=== PATIENT | male | born 1960 | race Two or more races ===

== ENCOUNTER 2023-09-28 17:06 | Emergency (ER) | payer OTHER ==
[~2023-09-28] VITALS: Ht 172.7 cm; Wt 117.9 kg
[2023-09-28 17:46] VITALS: BP 139/93; PULSE 96; RESP 18; TEMP 98; O2SAT 98
[2023-09-28] MEDS ORDERED: CYCL-837 PO (20:32)
[2023-09-28] MEDS ORDERED: ACE3T PO (20:32)
[2023-09-28] MEDS: KETOROLAC TROMETH 60MG/2ML VIAL IM ONE (20:43)
== END 2023-09-28 21:34 | disposition home or self-care (01) ==
LOC: ER 17:06
DX: S39.012A Strain of muscle, fascia and tendon of lower back, initial encounter (principal); W18.09XA Striking against other object with subsequent fall, initial encounter; Y93.01 Activity, walking, marching and hiking; Y92.89 Other specified places as the place of occurrence of the external cause; Y99.8 Other external cause status
CPT/HCPCS: 72100; 96372; 99283; J1885

== ENCOUNTER 2023-10-19 14:37 | Emergency (ER) | payer OTHER ==
[~2023-10-19] VITALS: Ht 172.7 cm; Wt 116.3 kg
[~2023-10-19 14:37] MED LIST: ACE3T PO; CYCL-837 PO; IBUP1TAB5 PO; PRED20TA2 PO
[2023-10-19 15:01] VITALS: BP 141/96; PULSE 106; RESP 18; O2SAT 99
[2023-10-19] MEDS: KETOROLAC TROMETH 60MG/2ML VIAL IM ONE (20:20)
== END 2023-10-19 20:25 | disposition home or self-care (01) ==
LOC: ER 14:37
DX: M54.41 Lumbago with sciatica, right side (principal); E11.9 Type 2 diabetes mellitus without complications; E78.5 Hyperlipidemia, unspecified; I10 Essential (primary) hypertension; Z88.0 Allergy status to penicillin
CPT/HCPCS: 72100; 72220; 96372; 99284; J1885

== ENCOUNTER → 2024-02-09 | Outpatient (CLI) | payer BC ==
[2024-02-09 15:23] LABS: Amphetamine Screen, Urine Neg (NEGATIVE)
[2024-02-09 15:25] LABS: Barbiturate Scree,Urine Neg (NEGATIVE); Benzodiazephine Screen, Urine Neg (NEGATIVE); Cannabinoid Screen, Urine Neg (NEGATIVE); Cocaine Screen, Urine Neg (NEGATIVE); Opiate Scree,Urine Pos (NEGATIVE); Phencyclidine Screen, Urine Neg (NEGATIVE)
== END | disposition home or self-care (01) ==
LOC: LAB 13:55
PROVIDERS: ATTEND Family Medicine
DX: K59.03 Drug induced constipation (principal); M54.41 Lumbago with sciatica, right side
CPT/HCPCS: 80307

== ENCOUNTER → 2024-04-28 | Outpatient (CLI) | payer BC ==
[2024-04-28 08:28] LABS: Amphetamine Screen, Urine Neg (NEGATIVE); Barbiturate Scree,Urine Neg (NEGATIVE)
[2024-04-28 08:29] LABS: Benzodiazephine Screen, Urine Neg (NEGATIVE); Cannabinoid Screen, Urine Neg (NEGATIVE); Cocaine Screen, Urine Neg (NEGATIVE); Opiate Scree,Urine Pos (NEGATIVE); Phencyclidine Screen, Urine Neg (NEGATIVE)
[2024-04-28 08:31] LABS: Alanine Aminotransferase 29 U/L (7-40); Albumin 4.6 g/dL (3.2-4.8); Alkaline Phosphatase 116 U/L (46-116); Anion Gap 8 (5-15); Aspartate Aminotransferase 23 U/L (13-40); BUN/Creatinine Ratio 13.4 (10.0-20.0); Bilirubin, Total 0.4 mg/dL (0.2-1.0); Blood Urea Nitrogen 16 mg/dL (9-23); Calcium 9.6 mg/dL (8.7-10.4); Carbon Dioxide 26 mmol/L (20-31); Chloride 104 mmol/L (98-107); Glucose 118 mg/dL (74-106); Potassium 4.2 mmol/L (3.5-5.1); Sodium 138 mmol/L (136-145); Total Protein 7.2 g/dL (5.7-8.2)
== END | disposition home or self-care (01) ==
LOC: LAB 07:42
PROVIDERS: ATTEND Family Medicine
DX: Z00.00 Encounter for general adult medical examination without abnormal findings (principal)
CPT/HCPCS: 36415; 80053; 80307

== ENCOUNTER → 2024-06-02 | Outpatient (CLI) | payer BC ==
[2024-06-02 14:07] LABS: Amphetamine Screen, Urine Neg (NEGATIVE); Barbiturate Scree,Urine Neg (NEGATIVE); Benzodiazephine Screen, Urine Neg (NEGATIVE); Cannabinoid Screen, Urine Neg (NEGATIVE); Cocaine Screen, Urine Neg (NEGATIVE); Opiate Scree,Urine Pos (NEGATIVE); Phencyclidine Screen, Urine Neg (NEGATIVE)
== END | disposition home or self-care (01) ==
LOC: LAB 13:30
PROVIDERS: ATTEND Family Medicine
DX: K59.03 Drug induced constipation (principal); M51.26 Other intervertebral disc displacement, lumbar region; K80.20 Calculus of gallbladder without cholecystitis without obstruction; M54.41 Lumbago with sciatica, right side
CPT/HCPCS: 80307

== ENCOUNTER → 2024-07-19 | Outpatient (CLI) | payer BC ==
[2024-07-19 16:06] LABS: Amphetamine Screen, Urine Neg (NEGATIVE); Barbiturate Scree,Urine Neg (NEGATIVE); Benzodiazephine Screen, Urine Neg (NEGATIVE); Cannabinoid Screen, Urine Neg (NEGATIVE); Cocaine Screen, Urine Neg (NEGATIVE); Opiate Scree,Urine Pos (NEGATIVE); Phencyclidine Screen, Urine Neg (NEGATIVE)
== END | disposition home or self-care (01) ==
LOC: LAB 15:00
PROVIDERS: ATTEND Family Medicine
DX: M51.26 Other intervertebral disc displacement, lumbar region (principal); G89.29 Other chronic pain; M54.41 Lumbago with sciatica, right side
CPT/HCPCS: 80307

== ENCOUNTER → 2024-08-03 | Outpatient (CLI) | payer BC ==
[2024-08-03 07:36] LABS: Urine Bacteria None Seen /hpf (None Seen)
[2024-08-03 07:45] LABS: Urine Blood Negative /uL (Negative); Urine Clarity Clear (Clear); Urine Color Light-Yellow (Yellow); Urine Protein, UAD Negative (Negative); Urine Specific Gravity 1.017 (1.001-1.035); Urine Squamous Epithelial Cell FEW /hpf (<5); Urine Urobilinogen Normal (Negative); Urine WBC < 1 /HPF (0-3); Urine pH 6.5 (5.0-9.0)
[2024-08-03 07:47] LABS: Basophils # (auto) 0.1 10 ^3/uL (0-0.2); Eosinophils # (auto) 0.3 10 ^3/uL (0-0.8); Eosinophils % (auto) 3.8 % (0.0-7.0); Hematocrit 41.1 % (41.0-53.0); Hemoglobin 13.6 g/dL (13.5-17.5); Lymphocytes # (auto) 1.4 10 ^3/uL (0.4-5.4); Mean Corpuscular Hemoglobin 28.1 pg (28.0-32.0); Mean Corpuscular Hgb Conc. 33.2 g/dL (32.0-36.0); Mean Corpuscular Volume 84.6 fL (80.0-100.0); Monocytes # (auto) 0.7 10 ^3/uL (0-1.3); Neutrophils # (auto) 4.9 10 ^3/uL (1.6-8.6); Neutrophils % (auto) 67.2 % (37.0-80.0); Nucleated Red Blood Cells % 0.1 %; Platelet Count (auto) 362 10^3/uL (140-450); Red Blood Cells 4.86 10^6/uL (4.5-5.90); Red Cell Distribution Width 14.2 % (11.8-14.3); White Blood Cell 7.3 10^3/uL (4.4-10.8)
[2024-08-03 08:52] LABS: Amphetamine Screen, Urine Neg (NEGATIVE); Barbiturate Scree,Urine Neg (NEGATIVE); Benzodiazephine Screen, Urine Neg (NEGATIVE); Cannabinoid Screen, Urine Neg (NEGATIVE); Cocaine Screen, Urine Neg (NEGATIVE); Opiate Scree,Urine Pos (NEGATIVE); Phencyclidine Screen, Urine Neg (NEGATIVE)
[2024-08-03 08:53] LABS: Alkaline Phosphatase 113 U/L (46-116); Anion Gap 6 (5-15); Calcium 9.4 mg/dL (8.7-10.4); Carbon Dioxide 27 mmol/L (20-31); Chloride 103 mmol/L (98-107); Potassium 4.6 mmol/L (3.5-5.1); Sodium 136 mmol/L (136-145)
[2024-08-03 08:54] LABS: Alanine Aminotransferase 51 U/L (7-40); BUN/Creatinine Ratio 13.5 (10.0-20.0); Blood Urea Nitrogen 15 mg/dL (9-23); Glucose 125 mg/dL (74-106); LDL Cholesterol 100 mg/dL (< 100); Triglycerides 219 mg/dL (< 150)
[2024-08-03 08:55] LABS: Albumin 4.7 g/dL (3.2-4.8); Aspartate Aminotransferase 34 U/L (13-40); Cholesterol 165 mg/dL (< 200)
[2024-08-03 08:56] LABS: Bilirubin, Total 0.5 mg/dL (0.2-1.0); HDL Cholesterol 41 mg/dL (40-59); Total Protein 6.9 g/dL (5.7-8.2)
[2024-08-03 10:17] LABS: Prostate Specific Antigen 0.42 ng/mL (0.0-4.0)
[2024-08-03 10:21] LABS: Free T4 (Free Thyroxine) 0.97 ng/dL (0.89-1.76)
[2024-08-03 10:23] LABS: Folate (Folic Acid) 17.25 ng/mL (>5.38)
[2024-08-03 11:03] LABS: % Iron Saturation 20.2 % (20-55)
== END | disposition home or self-care (01) ==
LOC: LAB 07:11
PROVIDERS: ATTEND Family Medicine
DX: E11.9 Type 2 diabetes mellitus without complications (principal); E78.5 Hyperlipidemia, unspecified; I10 Essential (primary) hypertension; K76.0 Fatty (change of) liver, not elsewhere classified
CPT/HCPCS: 36415; 80053; 80061; 80307; 81001; 82607; 82746; 83036; 83540; 83550; 84153; 84439; 84443; 85025

== ENCOUNTER → 2024-11-03 | Day surgery (SDC) | payer BC ==
[2024-11-01 08:57] LABS: Urine Bacteria None Seen /hpf (None Seen)
[2024-11-01 08:59] LABS: Basophils # (auto) 0.1 10 ^3/uL (0-0.2); Basophils % (auto) 1.3 % (0.0-2.0); Eosinophils # (auto) 0.2 10 ^3/uL (0-0.8); Eosinophils % (auto) 2.4 % (0.0-7.0); Hematocrit 41.6 % (41.0-53.0); Lymphocytes # (auto) 1.5 10 ^3/uL (0.4-5.4); Lymphocytes % (auto) 17.8 % (10.0-50.0); Mean Corpuscular Hemoglobin 28.1 pg (28.0-32.0); Mean Corpuscular Hgb Conc. 33.6 g/dL (32.0-36.0); Mean Corpuscular Volume 83.6 fL (80.0-100.0); Monocytes # (auto) 0.7 10 ^3/uL (0-1.3); Monocytes % (auto) 8.4 % (0.0-12.0); Neutrophils # (auto) 6.1 10 ^3/uL (1.6-8.6); Neutrophils % (auto) 70.1 % (37.0-80.0); Platelet Count (auto) 373 10^3/uL (140-450); Red Blood Cells 4.98 10^6/uL (4.5-5.90); Red Cell Distribution Width 14.1 % (11.8-14.3); White Blood Cell 8.7 10^3/uL (4.4-10.8)
[2024-11-01 09:13] LABS: Urine Blood Negative /uL (Negative); Urine Clarity Clear (Clear); Urine Color Light-Yellow (Yellow); Urine Mucus FEW (None Seen); Urine Protein, UAD Negative (Negative); Urine Specific Gravity 1.031 (1.001-1.035); Urine Squamous Epithelial Cell FEW /hpf (<5); Urine Urobilinogen 2 mg/dL (Negative); Urine WBC 1 /HPF (0-3)
[2024-11-01 09:22] LABS: INR 0.94 (0.9-1.15); Partial Thromboplastin Time 25.9 SEC (24.5-34.5)
[2024-11-01 09:43] LABS: Albumin 4.7 g/dL (3.2-4.8); Alkaline Phosphatase 108 U/L (46-116); Anion Gap 6 (5-15); BUN/Creatinine Ratio 13.6 (10.0-20.0); Blood Urea Nitrogen 20 mg/dL (9-23); Calcium 9.8 mg/dL (8.7-10.4); Carbon Dioxide 28 mmol/L (20-31); Chloride 101 mmol/L (98-107); Potassium 4.5 mmol/L (3.5-5.1); Total Protein 7.2 g/dL (5.7-8.2)
[2024-11-01 09:44] LABS: Bilirubin, Total 0.3 mg/dL (0.2-1.0)
[2024-11-01 09:50] LABS: Alanine Aminotransferase 66 U/L (7-40); Aspartate Aminotransferase 59 U/L (13-40); Glucose 109 mg/dL (74-106); Sodium 135 mmol/L (136-145)
[~2024-11-03] VITALS: Ht 172.7 cm; Wt 117.9 kg
[~2024-11-03] MED LIST changes: +ACCU-CHEK COMFORT CURVE STRIP VI ONE; -ACE3T PO; +ASPITAB34 OR; +ATOR-507 PO; +CITA10TA8 PO; -CYCL-837 PO; +HYDROmorphone HCL 2 MG/ML VL/or syr IV PRN; -IBUP1TAB5 PO; +KETAMINE 50mg/ML 1ml syringe ONE; +KETOROLAC TROMETH 30 MG/ML 1ML VIAL IV ONE; +LIDOCAINE 1% (LOCAL ANESTH.) PF 5ml SDV ONE; +LISI40TA16 PO; +METF-490 PO; +METOCLOPRAMIDE HCL 5MG/ml INJ 2ml VIAL IV ONE; +MIDAZOLAM HCL 2MG/2ML 2ml VIAL (1mg/ml) ONE; +MORPHINE SULFATE 4 MG/ML SYR/VIAL IV PRN; +MORPHINE SULFATE INJ 2 MG/ml SYRG IV PRN; +ONDANSETRON HCL 4 MG/2 ML VIAL ONE; -PRED20TA2 PO; +PROPOFOL 10 MG/ML 20 ML IV ONE; +SODIUM CHLORIDE LOCK 10 ML ONE; +fentaNYL CITRATE 100 MCG/2 ML VL ONE
[2024-11-03 11:16] VITALS: PULSE 88; RESP 20; TEMP 98.4; O2SAT 95
--- NOTE | 2024-11-03 11:22 | DVHOP2 ---
Operative Report DATE OF OPERATION: 11/03/24 PROCEDURE: Diagnostic Colonoscopy. PREOPERATIVE INDICATION: The patient is a 64 -year-old male undergoing colonoscopy for surveillance with personal history of colon polyps POSTOPERATIVE DIAGNOSES: 1. Trace to 1+ internal hemorrhoids 2. Mild sigmoid diverticular disease 3. Otherwise completely normal colonoscopy examination up to the cecum and terminal ileum PROCEDURE PERFORMED BY: Joanna Carrillo M.D. SCOPE: Olympus videocolonoscope. ASA CLASS: 3. PREOPERATIVE MEDICATIONS: Dr. Melvin Borjas PROCEDURE IN DETAIL: After obtaining an informed consent, the patient was placed on left lateral decubitus position. He was then sedated with the above medications. A rectal examination was performed that was normal. The colonoscope was then passed through the anus into the rectosigmoid and through the descending, transverse, and ascending colon up to the cecum with visualization of the appendiceal orifice, base of the cecum and the ileocecal valve. The colonoscope was then withdrawn. The distal 5-10 cm of the terminal ileum were normal There were no masses or colitis. Patient had mild sigmoid diverticular disease. There were no new polyps this time. On retroflexion he had trace to 1+ internal hemorrhoids. The patient tolerated the procedure well without difficulty. WITHDRAWAL TIME: 8 minutes QUALITY OF THE PREP: [place] Bowel Prep score: 8 COMPLICATIONS : None SPECIMENS: None DISPOSITION: Stable D/C to home PLAN: 1. Repeat colonoscopy in five years 2. Resume GI soft diet advance as tolerated 3. Local anorectal hemorrhoidal care 4. Outpatient follow up with me in 4-6 weeks to review results and discuss further management JOANNA CARRILLO MD Nov 03, 2024 11:22
[2024-11-03 11:46] VITALS: BP 155/97; PULSE 84; RESP 15; O2SAT 94
== END | disposition home or self-care (01) ==
LOC: GI 08:12
PROVIDERS: ATTEND Internal Medicine Gastroenterology
DX: Z12.11 Encounter for screening for malignant neoplasm of colon (principal); K64.8 Other hemorrhoids; K57.30 Diverticulosis of large intestine without perforation or abscess without bleeding; I12.9 Hypertensive chronic kidney disease with stage 1 through stage 4 chronic kidney disease, or unspecified chronic kidney disease; E11.22 Type 2 diabetes mellitus with diabetic chronic kidney disease; N18.30 Chronic kidney disease, stage 3 unspecified; E66.01 Morbid (severe) obesity due to excess calories; G47.33 Obstructive sleep apnea (adult) (pediatric); G89.29 Other chronic pain; F32.A Depression, unspecified; Z86.0100 Personal history of colon polyps, unspecified; Z88.0 Allergy status to penicillin; Z80.0 Family history of malignant neoplasm of digestive organs; Z87.891 Personal history of nicotine dependence; Z86.19 Personal history of other infectious and parasitic diseases; Z79.82 Long term (current) use of aspirin; Z79.899 Other long term (current) drug therapy; Z79.84 Long term (current) use of oral hypoglycemic drugs
CPT/HCPCS: 36415; 45378; 80053; 81001; 82962; 85025; 85610; 85730; J2250; J2405; J2704; J3010; J7030

== ENCOUNTER → 2024-11-15 | Outpatient (CLI) | payer BC ==
[~2024-11-15] MED LIST changes: -ACCU-CHEK COMFORT CURVE STRIP VI ONE; -HYDROmorphone HCL 2 MG/ML VL/or syr IV PRN; -KETAMINE 50mg/ML 1ml syringe ONE; -KETOROLAC TROMETH 30 MG/ML 1ML VIAL IV ONE; -LIDOCAINE 1% (LOCAL ANESTH.) PF 5ml SDV ONE; -METOCLOPRAMIDE HCL 5MG/ml INJ 2ml VIAL IV ONE; -MIDAZOLAM HCL 2MG/2ML 2ml VIAL (1mg/ml) ONE; -MORPHINE SULFATE 4 MG/ML SYR/VIAL IV PRN; -MORPHINE SULFATE INJ 2 MG/ml SYRG IV PRN; -ONDANSETRON HCL 4 MG/2 ML VIAL ONE; -PROPOFOL 10 MG/ML 20 ML IV ONE; -SODIUM CHLORIDE LOCK 10 ML ONE; -fentaNYL CITRATE 100 MCG/2 ML VL ONE
[2024-11-15 07:44] LABS: Basophils # (auto) 0.1 10 ^3/uL (0-0.2); Eosinophils # (auto) 0.2 10 ^3/uL (0-0.8); Hematocrit 41.4 % (41.0-53.0); Hemoglobin 14.1 g/dL (13.5-17.5); Lymphocytes # (auto) 1.4 10 ^3/uL (0.4-5.4); Lymphocytes % (auto) 19.3 % (10.0-50.0); Mean Corpuscular Hemoglobin 28.3 pg (28.0-32.0); Mean Corpuscular Volume 83.2 fL (80.0-100.0); Monocytes # (auto) 0.7 10 ^3/uL (0-1.3); Monocytes % (auto) 8.8 % (0.0-12.0); Neutrophils # (auto) 5.1 10 ^3/uL (1.6-8.6); Neutrophils % (auto) 67.9 % (37.0-80.0); Platelet Count (auto) 370 10^3/uL (140-450); Red Blood Cells 4.97 10^6/uL (4.5-5.90); Red Cell Distribution Width 14.2 % (11.8-14.3); White Blood Cell 7.5 10^3/uL (4.4-10.8)
[2024-11-15 08:02] LABS: INR 0.96 (0.9-1.15); Prothrombin Time 10.2 sec (9.3-11.8)
[2024-11-15 08:23] LABS: Alkaline Phosphatase 112 U/L (46-116); Anion Gap 9 (5-15); BUN/Creatinine Ratio 11.7 (10.0-20.0); Blood Urea Nitrogen 13 mg/dL (9-23); Calcium 9.6 mg/dL (8.7-10.4); Carbon Dioxide 27 mmol/L (20-31); Chloride 102 mmol/L (98-107); Potassium 4.5 mmol/L (3.5-5.1); Sodium 138 mmol/L (136-145); Total Protein 7.1 g/dL (5.7-8.2)
[2024-11-15 08:24] LABS: Albumin 4.6 g/dL (3.2-4.8); Bilirubin, Total 0.5 mg/dL (0.2-1.0); Cholesterol 186 mg/dL (< 200); HDL Cholesterol 40 mg/dL (40-59)
[2024-11-15 08:25] LABS: Alanine Aminotransferase 75 U/L (7-40); Aspartate Aminotransferase 69 U/L (13-40); Glucose 131 mg/dL (74-106); LDL Cholesterol 125 mg/dL (< 100); Triglycerides 236 mg/dL (< 150)
[2024-11-15 11:15] LABS: Hepatitis B Surface Antigen Negative (Negative); Hepatitis C Antibody Negative (Negative)
== END | disposition home or self-care (01) ==
LOC: LAB 07:18
PROVIDERS: ATTEND Internal Medicine Gastroenterology
DX: K76.0 Fatty (change of) liver, not elsewhere classified (principal); R94.5 Abnormal results of liver function studies
CPT/HCPCS: 36415; 80053; 80061; 82043; 83036; 84153; 85025; 85610; 86803; 87340

== ENCOUNTER 2025-06-18 11:03 | Emergency (ER) | payer BC, OTHER ==
[~2025-06-18] VITALS: Ht 172.7 cm; Wt 155.5 kg
--- NOTE | 2025-06-18 11:38 | ED.PDOC ---
Back pain HPI HPI Comments The patient presented with chronic low back pain associated with sciatica. The patient reported experiencing low back pain, characterized as sciatic pain affecting the right lower leg. The patient mentioned chronic sciatica and indicated that the pain was aggravated by a previous work-related injury in 2022. The patient stated taking Percocet for back pain and also uses Flexeril, which is still available. The patient reported having flare-ups more frequently but did not report any new fall injuries. Has work related trauma history of chronic steroid use or history of osteoporosis Denies history of cancer Denies fevers chills night sweats nausea vomiting unintentional weight loss Denies abdominal tearing pain Denies syncope Denies urinary changes or urinary incontinence Denies numbness tingling of the groin/inner thigh Denies previous back procedures or surgeries Chief Complaint: Back Pain Time Seen by MD: 11:06 Primary Care Provider: ABRAHAM Collins Notes: Nurses Notes, Medications, Allergies Allergies: Coded Allergies: Penicillins (Verified Allergy, Unknown, 09/28/23) Home Meds Reported Medications Vqrykvk-Rouwqhwnqcylg-Gkwefjcy (Excedrin Migraine) Migraine Tab, 1 OR DAILY, TAB 11/01/24 Citalopram Hydrobromide (Celexa) 10 Mg Tab, 20 MG PO DAILY, TAB 11/01/24 Atorvastatin Calcium (Lipitor) 40 Mg Tab, 40 MG PO DAILY, TAB 11/01/24 Metformin Hydrochloride (METFORMIN HCL ER) 1,000 Mg Tab, 1000 MG PO QAM, TAB 11/01/24 Lisinopril (Lisinopril) 40 Mg Tab, 40 MG PO QAM, TAB 11/01/24 Information Source: Patient Mode of Arrival: Ambulatory Timing: Days Duration: Since onset, Days Severity: Moderate Prehospital treatment: None Quality: Aching Onset: Spontaneous History of: Chronic Back Pain Associated signs and symptoms: None Past Medical History PAST MEDICAL HISTORY: DM, High Lipids, HTN Past Medical History (Other): Chronic back pain Surgical History: Hernia Repair Family History Family History: Reviewed,noncontributory to illness, Unknown Social History Smoker: Non-Smoker Alcohol: Denies ETOH Use Drugs: Denies Drug Use Lives In: Home Constitutional: denies: chills, diaphoresis, fatigue, fever, malaise, sweats, weakness, others EENTM: denies: blurred vision, double vision, ear bleeding, ear discharge, ear drainage, ear pain, ear ringing, eye pain, eye redness, hearing loss, mouth pain, mouth swelling, nasal discharge, nose bleeding, nose congestion, nose pain, photophobia, tearing, throat pain, throat swelling, voice changes, others Respiratory: denies: cough, hemoptysis, orthopnea, SOB at rest, shortness of breath, SOB with excertion, stridor, wheezing, others Cardiovascular: denies: chest pain, dizzy spells, diaphoresis, Dyspnea on exertion, edema, irregular heart beat, left arm pain, lightheadedness, palpitations, PND, syncope, others Gastrointestinal: denies: abdomen distended, abdominal pain, blood streaked bowels, constipated, diarrhea, dysphagia, difficulty swallowing, hematemesis, melena, nausea, poor appetite, poor fluid intake, rectal bleeding, rectal pain, vomiting, others Genitourinary: denies: burning, dysuria, flank pain, frequency, hematuria, incontinence, penile discharge, penile sore, pain, testicle pain, testicle swelling, urgency, others Neurological: denies: dizziness, fainting, headache, left sided numbness, left sided weakness, numbness, paresthesia, pre-existing deficit, right sided numbness, right sided weakness, seizure, speech problems, tingling, tremors, weakness, others Musculoskeletal: reports: back pain; denies: gout, joint pain, joint swelling, muscle pain, muscle stiffness, neck pain, others Integumetry: denies: bruises, change in color, change in hair/nails, dryness, laceration, lesions, lumps, rash, wounds, others Allergic/Immunocompromised: denies: Difficulty Healing, Frequent Infections, Hives, Itching, others Hematologic/Lymphatic: denies: anemia, blood clots, easy bleeding, easy bruis ing, swollen glands, others Endocrine: denies: excessive hunger, excessive sweating, excessive thirst, exc essive urination, flushing, intolerance to cold, intolerance to heat, unexplained weight gain, unexplained weight loss, others Psychiatric: denies: anxiety, bipolar disorder, depression, hopeless, panic disorder, schizophrenia, sleepless, suicidal, others All Other Systems: Reviewed and Negative Physical Exam Exam Comments Musculoskeletal: No deformity to the back; right-sided lumbosacral paraspinal pain; positive right straight leg raise test. Neurological: Neurovascular sensation was intact. General Appearance: No Apparent Distress, Normal HEENT: Normal ENT Inspection, Pharynx Normal, TMs Normal Neck: Full Range of Motion, Non-Tender, Normal, Normal Inspection Respiratory: Chest Non-Tender, Lungs Clear, No Accessory Muscle Use, No Respiratory Distress, Normal Breath Sounds Cardiovascular: No Edema, No JVD, No Murmur, No Gallop, Normal Peripheral Pulses, Regular Rate/Rhythm Breast Exam: Deferred Gastrointestinal: No Organomegaly, Non Tender, No Pulsatile Mass, Normal Bowel Sounds, Soft Genitalia: Deferred Pelvic: Deferred Rectal: Deferred Extremities: No calf tenderness, Normal capillary refill, Normal inspection, Normal range of motion, Non-tender, No pedal edema Musculoskeletal : Apperance: Normal Neurologic: Alert, developer automatic II-XII nml as Tested, No Motor Deficits, Normal Affect, Normal Mood, No Sensory Deficits Cerebellar Function: Normal Reflexes: Normal Skin: Dry, Normal Color, Warm Lymphatic: No Adenopathy Was a procedure done? Was a procedure done?: No Back Pain Differential Dx Differential Diagnosis: Other X-Ray, Labs, Meds, VS Vital Signs Date Time Temp Pulse Resp B/P (MAP) Pulse Ox O2 Delivery O2 Flow Rate FiO2 06/18/25 11:59 98.8 86 18 152/94 (113) 97 98.8 06/18/25 11:59 86 18 97 Room Air 06/18/25 11:04 98.1 94 18 172/112 95 98.1 KEVIN REYES Sold: 05/21/2025 Filled: 05/16/2025 OXYCODONE HYDROCHLORIDE, ACETAMINOPHEN Refill 0 of 0 10-325 MG TAB Days: 30 Qty: 120 Daily: 60.0 Total: 1800.0 AKIN ROJAS VEGA: [id number] [facility] Pharmacy #: [id number] Serialized Rx: NOT REPORTED Pharmacy Rx: [id number] X-Ray, Labs, Meds, VS Comment Patient arrives alert and oriented, ABC's intact, afebrile, vital signs stable, saturating well in room air Chronic Low Back Pain: The patient presented with chronic low back pain associated with sciatica, primarily affecting the right lower extremity. This is consistent with the previous work-related injury in 2022. The positive right straight leg raise test supports the presence of radiculopathy. The patient's report of right-sided sciatic pain aligns with the clinical findings of right-sided lumbosacral paraspinal pain and a positive right straight leg raise test, suggesting nerve root irritation or compression. Medications: Continued current medications with Percocet and Flexeril management as per pain management prescriptions. Discussed the importance of adherence to medication regimen and monitoring for any adverse effects or changes in symptoms. Recommended follow-up visit with pain management for ongoing evaluation and management of chronic pain. Additional MDM Review of External, Non-ED records: External records reviewed. Discussion with independent historian (EMS, family) history obtained from the patient/parents (if applicable) at bedside Chronic conditions affecting care: None Social determinants of health affecting care: None Consideration of admission (observation or admission): I considered escalation of care to admission for this patient, however given the reassuring workup, the patient is safe for outpatient management. Discussion with the Radiology: No Tests considered but not performed: Prescription medication considered but not given: Time of 1ST Reevaluation: 11:36 Reevaluation 1ST: Unchanged Patient Education/Counseling: Diagnosis, Treatment, Prognosis Family Education/Counseling: No Family Present SEPSIS Sepsis Screen Date sepsis recognized/suspect: Jun 18, 2025 Time Sepsis recognized/suspect: 1104 Recent Procedure: No On Antibiotic Therapy: No Respiratory Rate >20: No Heart Rate >90: Yes Temp<36 C (96.8 F) or >38.3 C: No SBP <90 or MAP <65 mmHG: No New Acute Mental Status Change: No Is the patient on CPAP, BIPAP,: No Vital Signs Date Time Temp Pulse Resp B/P (MAP) Pulse Ox O2 Delivery O2 Flow Rate FiO2 06/18/25 11:59 98.8 86 18 152/94 (113) 97 98.8 06/18/25 11:59 86 18 97 Room Air 06/18/25 11:04 98.1 94 18 172/112 95 98.1 Departure 1 Departure Time of Disposition: 11:38 Impression: Primary Impression: Chronic back pain Qualified Codes: M54.40 - Lumbago with sciatica, unspecified side; G89.29 - Other chronic pain Disposition: 01 HOME / SELF CARE / HOMELESS Condition: Stable Discharged With: Self Critical Care Note Critical Care Time?: No Stability Stability form required: No Heart Score Heart Score: Heart Score Response (Comments) Value History N/A 0 EKG N/A 0 Age N/A 0 Risk Factors N/A 0 Troponin N/A 0 Total 0 I personally scribed for DARIN AVELAR NP ([email or web address]) on 06/18/25 at 11:45. Electronically submitted by Chris Juares ([email or web address]). DARIN AVELAR NP Jun 18, 2025 11:38
[2025-06-18 11:59] VITALS: BP 152/94; PULSE 86; RESP 18; TEMP 98.8; O2SAT 97
[2025-06-18] MEDS: OXYCODONE W/ ACETAMINOPHEN 5/325MG TABLET PO ONE (12:07)
== END 2025-06-18 13:31 | disposition home or self-care (01) ==
LOC: ER 11:03
DX: G89.29 Other chronic pain (principal); E11.9 Type 2 diabetes mellitus without complications; I10 Essential (primary) hypertension; E78.5 Hyperlipidemia, unspecified; Z79.899 Other long term (current) drug therapy; Z79.52 Long term (current) use of systemic steroids; Z79.82 Long term (current) use of aspirin; Z98.890 Other specified postprocedural states; Z88.0 Allergy status to penicillin; Z79.84 Long term (current) use of oral hypoglycemic drugs